=== PATIENT | female | born 1940 | race Caucasian/White ===

== ENCOUNTER → 2018-10-29 | Outpatient (CLI) | payer MEDICARE, OTHER ==
[2018-10-29 08:26] LABS: Source, Urine Clean Catch
[2018-10-29 14:14] LABS: Bilirubin, Urine Neg (Neg); Blood, Urine 2+ (Neg); Glucose Qualitative, Urine Neg (Neg); Ketones, Urine Neg (Neg); Leukocyte Esterase, Urine 2+ (Neg); Nitrite, Urine Neg (Neg); Protein, Urine Neg (Neg); Urobilinogen, Urine NORM (Normal)
[2018-10-29 14:30] LABS: Appearance, Urine Clear (Clear); Bacteria Mod /hpf; Color, Urine Yellow (P-Yellow); Squamous Epithelial Cells Few /hpf (Few)
== END | disposition home or self-care (01) ==
LOC: LAB SHORT 08:24 → LAB SRC 08:24
PROVIDERS: Urology
DX: N39.0 Urinary tract infection, site not specified (principal)
CPT/HCPCS: 81001; 87077; 87086; 87186

== ENCOUNTER 2019-06-14 08:46 | Day surgery (SDC) | payer MEDICARE, OTHER ==
[~2019-06-14] VITALS: Ht 167.6 cm; Wt 74.4 kg
[~2019-06-14 08:46] MED LIST: AMLO5 PO; LOVA40 PO; METO50ER PO; SYNTHROID75 MCG PO
[2019-06-14] MEDS ORDERED: FISH OIL 1,001000 MG (09:09)
[2019-06-14] MEDS ORDERED: OSTERA TABLET1 EACH (09:10)
[2019-06-14] MEDS ORDERED: INTRINSI B12-F1 EACH (09:10)
[2019-06-14] MEDS ORDERED: ALLERCLEAR D-11 EACH (09:11)
[2019-06-14] MEDS ORDERED: COQ-10100 MG (09:11)
[2019-06-14] MEDS ORDERED: AZO CRANBERRY1 EAC1 (09:11)
[2019-06-14] MEDS ORDERED: VIT1CAPS12 (09:11)
[2019-06-14] MEDS ORDERED: MELATONIN5 M1 (09:12)
== END 2019-06-14 11:15 | disposition home or self-care (01) ==
LOC: ORSCSDS 08:46
PROVIDERS: Internal Medicine Gastroenterology
PROC: 0DBK8ZX Excision of Ascending Colon, Via Natural or Artificial Opening Endoscopic, Diagnostic (ICD-10-PCS; principal; 2019-06-14 10:15)
PROC: 0DB88ZX Excision of Small Intestine, Via Natural or Artificial Opening Endoscopic, Diagnostic (ICD-10-PCS; principal; 2019-06-14 10:15)
PROC: 0DBM8ZX Excision of Descending Colon, Via Natural or Artificial Opening Endoscopic, Diagnostic (ICD-10-PCS; principal; 2019-06-14 10:15)
PROC: 0DB98ZX Excision of Duodenum, Via Natural or Artificial Opening Endoscopic, Diagnostic (ICD-10-PCS; principal; 2019-06-14 10:15)
PROC: 0DB68ZX Excision of Stomach, Via Natural or Artificial Opening Endoscopic, Diagnostic (ICD-10-PCS; principal; 2019-06-14 10:15)
DX: K30 Functional dyspepsia (principal); R19.7 Diarrhea, unspecified; R10.9 Unspecified abdominal pain; K52.832 Lymphocytic colitis; D12.2 Benign neoplasm of ascending colon; D12.4 Benign neoplasm of descending colon; I10 Essential (primary) hypertension; K64.8 Other hemorrhoids; K57.30 Diverticulosis of large intestine without perforation or abscess without bleeding; E78.5 Hyperlipidemia, unspecified; E78.00 Pure hypercholesterolemia, unspecified; Z79.899 Other long term (current) drug therapy
CPT/HCPCS: 88305; 88342; J0330; J0461; J2405; J2704; J7120

== ENCOUNTER 2021-11-01 08:04 | Emergency (ER) | payer MEDICARE, OTHER ==
[~2021-11-01] VITALS: Ht 167.6 cm; Wt 76.2 kg
[~2021-11-01 08:04] MED LIST changes: +ALLERCLEAR D-11 EACH; +AZO CRANBERRY1 EAC1; +COQ-10100 MG; +FISH OIL 1,001000 MG; +INTRINSI B12-F1 EACH; +MELATONIN5 M1; +OSTERA TABLET1 EACH; +VIT1CAPS12
[2021-11-01 10:25] LABS: Influenza A, PCR NEGATIVE (NEGATIVE); Influenza B, PCR NEGATIVE (NEGATIVE); Resp Syncytial Virus, PCR NEGATIVE (NEGATIVE)
[2021-11-01 11:03] LABS: SARS-Cov-2 (COVID-19) PCR, MMC POSITIVE (NEGATIVE)
== END 2021-11-01 13:13 | disposition home or self-care (01) ==
LOC: ER 08:04
PROVIDERS: Physician Assistant
DX: U07.1 COVID-19 (principal); Z88.1 Allergy status to other antibiotic agents; Z88.8 Allergy status to other drugs, medicaments and biological substances; Z79.899 Other long term (current) drug therapy
CPT/HCPCS: 0241U

== ENCOUNTER → 2021-11-30 | Outpatient (CLI) | payer MEDICARE, OTHER ==
[2021-11-30 13:47] LABS: Source, Urine Clean Catch
[2021-11-30 15:05] LABS: Appearance, Urine Hazy (Clear); Bilirubin, Urine Neg (Neg); Blood, Urine 4+ (Neg); Color, Urine Yellow (P-Yellow); Glucose Qualitative, Urine Neg (Neg); Ketones, Urine Neg (Neg); Leukocyte Esterase, Urine 2+ (Neg); Nitrite, Urine Pos (Neg); Protein, Urine 1+ (Neg); Specific Gravity, Urine 1.005 (1.003-1.022); Urobilinogen, Urine NORM (Normal)
[2021-11-30 16:15] LABS: Bacteria Many /hpf; Squamous Epithelial Cells Few /hpf (Few); White Blood Cells, Urine TNTC /hpf (0-5)
== END | disposition home or self-care (01) ==
LOC: LAB 13:46 → LAB SHORT 13:46
PROVIDERS: Internal Medicine
DX: R30.0 Dysuria (principal)
CPT/HCPCS: 36415; 81001; 87077; 87086; 87186

== ENCOUNTER → 2021-12-31 | Outpatient (CLI) | payer MEDICARE, OTHER ==
[2021-12-31 15:25] LABS: Source, Urine Clean Catch
[2021-12-31 15:52] LABS: Appearance, Urine Clear (Clear); Bilirubin, Urine Neg (Neg); Blood, Urine Neg (Neg); Color, Urine Amber (P-Yellow); Glucose Qualitative, Urine Neg (Neg); Ketones, Urine Neg (Neg); Leukocyte Esterase, Urine Neg (Neg); Nitrite, Urine Neg (Neg); Protein, Urine Neg (Neg); Specific Gravity, Urine 1.005 (1.003-1.022); Urobilinogen, Urine NORM (Normal); pH, Urine 6.5 (5.0-8.0)
== END ==
LOC: LAB SHORT 15:21 → LAB FUT 12-31 14:10
PROVIDERS: Urology
DX: R30.0 Dysuria (principal)
CPT/HCPCS: 81003; 87086

== ENCOUNTER → 2023-12-19 | Outpatient (CLI) | payer MEDICARE, OTHER ==
[2023-12-20 12:53] LABS: Adenovirus F 40/41 Not Detected (NOT DETECT); Astrovirus Not Detected (NOT DETECT); Campylobacter Sp Not Detected (NOT DETECT); Cryptosporidium Not Detected (NOT DETECT); Cyclospora Cayetanensis Not Detected (NOT DETECT); E. Coli O157 Not Detected (NOT DETECT); Entamoeba Histolytica Not Detected (NOT DETECT); Enteroaggregative E. coli-EAEC Not Detected (NOT DETECT); Enteropathogenic E. coli-EPEC Detected (NOT DETECT); Enterotoxigenic E. coli-ETEC Not Detected (NOT DETECT); Giardia Lamblia Not Detected (NOT DETECT); Norovirus GI/GII Not Detected (NOT DETECT); Plesiomonas Shigelloides Not Detected (NOT DETECT); Rotavirus A Not Detected (NOT DETECT); Salmonella Sp Not Detected (NOT DETECT); Sapovirus Not Detected (NOT DETECT); Shiga Toxin-prod E. coli-STEC Not Detected (NOT DETECT); Shigella/Enteroin E. coli-EIEC Not Detected (NOT DETECT); Vibrio Cholerae Not Detected (NOT DETECT); Vibrio Sp Not Detected (NOT DETECT); Yersinia Enterocolitica Not Detected (NOT DETECT)
== END ==
LOC: LAB SHORT 09:32
PROVIDERS: Internal Medicine
DX: K76.0 Fatty (change of) liver, not elsewhere classified (principal); M25.561 Pain in right knee; R10.11 Right upper quadrant pain; R19.7 Diarrhea, unspecified
CPT/HCPCS: 87338; 87507

== ENCOUNTER → 2023-12-26 | Outpatient (CLI) | payer MEDICARE, OTHER ==
[2023-12-28 09:31] LABS: Adenovirus F 40/41 Not Detected (NOT DETECT); Astrovirus Not Detected (NOT DETECT); Campylobacter Sp Not Detected (NOT DETECT); Cryptosporidium Not Detected (NOT DETECT); Cyclospora Cayetanensis Not Detected (NOT DETECT); E. Coli O157 Not Detected (NOT DETECT); Entamoeba Histolytica Not Detected (NOT DETECT); Enteroaggregative E. coli-EAEC Not Detected (NOT DETECT); Enteropathogenic E. coli-EPEC Not Detected (NOT DETECT); Enterotoxigenic E. coli-ETEC Not Detected (NOT DETECT); Giardia Lamblia Not Detected (NOT DETECT); Norovirus GI/GII Not Detected (NOT DETECT); Plesiomonas Shigelloides Not Detected (NOT DETECT); Rotavirus A Not Detected (NOT DETECT); Salmonella Sp Not Detected (NOT DETECT); Sapovirus Not Detected (NOT DETECT); Shiga Toxin-prod E. coli-STEC Not Detected (NOT DETECT); Shigella/Enteroin E. coli-EIEC Not Detected (NOT DETECT); Vibrio Cholerae Not Detected (NOT DETECT); Vibrio Sp Not Detected (NOT DETECT); Yersinia Enterocolitica Not Detected (NOT DETECT)
== END | disposition home or self-care (01) ==
LOC: LAB SHORT 09:15 → LAB 09:15
PROVIDERS: Internal Medicine
DX: R19.7 Diarrhea, unspecified (principal)
CPT/HCPCS: 87507

== ENCOUNTER → 2024-06-06 | Outpatient (CLI) | payer MEDICARE, OTHER ==
[~2024-06-06] MED LIST changes: +BUDESONIDE EC3 M1; +DIAZ5 PO; +HYDPAM25; +HYDR1TAB94 PO; +ZYRTEC10 M2 PO
[2024-06-06 12:02] LABS: Adenovirus F 40/41 Not Detected (NOT DETECT); Astrovirus Not Detected (NOT DETECT); Campylobacter Sp Not Detected (NOT DETECT); Cryptosporidium Not Detected (NOT DETECT); Cyclospora Cayetanensis Not Detected (NOT DETECT); E. Coli O157 Not Detected (NOT DETECT); Entamoeba Histolytica Not Detected (NOT DETECT); Enteroaggregative E. coli-EAEC Not Detected (NOT DETECT); Enteropathogenic E. coli-EPEC Not Detected (NOT DETECT); Enterotoxigenic E. coli-ETEC Not Detected (NOT DETECT); Giardia Lamblia Not Detected (NOT DETECT); Norovirus GI/GII Not Detected (NOT DETECT); Plesiomonas Shigelloides Not Detected (NOT DETECT); Rotavirus A Not Detected (NOT DETECT); Salmonella Sp Not Detected (NOT DETECT); Sapovirus Not Detected (NOT DETECT); Shiga Toxin-prod E. coli-STEC Not Detected (NOT DETECT); Shigella/Enteroin E. coli-EIEC Not Detected (NOT DETECT); Vibrio Cholerae Not Detected (NOT DETECT); Vibrio Sp Not Detected (NOT DETECT); Yersinia Enterocolitica Not Detected (NOT DETECT)
== END ==
LOC: LAB 09:29 → LAB SHORT 09:29
PROVIDERS: Internal Medicine
DX: K52.9 Noninfective gastroenteritis and colitis, unspecified (principal)
CPT/HCPCS: 87507

== ENCOUNTER 2024-12-23 11:00 | Day surgery (SDC) | payer MEDICARE, OTHER ==
[~2024-12-23] VITALS: Ht 167.6 cm; Wt 56.3 kg
[2024-12-23] MEDS ORDERED: CLIMARA1 EACH (11:26)
[2024-12-23] MEDS ORDERED: DIPATR (11:26)
[2024-12-23] MEDS ORDERED: TRAZ50 (11:26)
[2024-12-23 13:49] VITALS: BP 131/64
--- NOTE | 2024-12-23 13:49 | NUR ---
12/23/24 1344 [facility] PRESENT POST PROCEDURE, AT BEDSIDE FOR DC INSTRUCTIONS AND POST OP REPORT FROM DR MARQUEZ
== END 2024-12-23 13:40 | disposition home or self-care (01) ==
LOC: ORSCSDS 11:00
PROVIDERS: Internal Medicine Gastroenterology
PROC: 0DB68ZX Excision of Stomach, Via Natural or Artificial Opening Endoscopic, Diagnostic (ICD-10-PCS; principal; 2024-12-23 12:30)
PROC: 0DB98ZX Excision of Duodenum, Via Natural or Artificial Opening Endoscopic, Diagnostic (ICD-10-PCS; principal; 2024-12-23 12:30)
PROC: 0DBE8ZX Excision of Large Intestine, Via Natural or Artificial Opening Endoscopic, Diagnostic (ICD-10-PCS; principal; 2024-12-23 12:30)
DX: R19.7 Diarrhea, unspecified (principal); K29.50 Unspecified chronic gastritis without bleeding; K21.9 Gastro-esophageal reflux disease without esophagitis; K52.832 Lymphocytic colitis; R63.4 Abnormal weight loss; G47.33 Obstructive sleep apnea (adult) (pediatric); E03.9 Hypothyroidism, unspecified; E78.5 Hyperlipidemia, unspecified; L93.0 Discoid lupus erythematosus; Z79.899 Other long term (current) drug therapy
CPT/HCPCS: 88305; 88341; 88342; 93005; 93010; J2704; J7120

== ENCOUNTER 2025-01-21 06:30 | Day surgery (SDC) | payer MEDICARE, OTHER ==
[2024-12-31 09:47] VITALS: BP 144/87
[~2025-01-21] VITALS: Ht 166 cm; Wt 59.3 kg
[2025-01-21] VITALS (10 sets, daily range): BP systolic 103–141; BP diastolic 61–81
[~2025-01-21 06:30] MED LIST changes: -AZO CRANBERRY1 EAC1; +AZO D-MANNOSE500 M1 PO; +B-12500 MC2 PO; +C COMPLEX1000 M1 PO; +CLIMARA1 EACH; +CRANBERRY500 M1 PO; +CeFAZolin Sodium 2,000 MG in NS 100 ML IV SCH; +Chlorhexidine Mouth Care 15 ML UDC MT SCH; -DIAZ5 PO; +DIAZ5 VAG; +DIPATR; +DIPATR PO; +Estrace Vagin42.5 GM VAG; +FISH OIL 1,0001 EA10 PO; -FISH OIL 1,001000 MG; +HYDHCL25; +MELA3; +PAPAYA ENZYMES PO; +Ropivacaine 0.5% HCl/Pf 123.125 MG,EPINEPHrine HCL 0.25 MG,Ketorolac Tromethamine 15 MG... INFIL SCH; +SELENIUM200 MC3 PO; +TRAZ50 PO; +Tranexamic Acid 100 ML IV SCH; +UBID10 PO; +Vitamin D1000 UNI1 PO
[2025-01-21] MEDS ORDERED: Ondansetron HCl 2 MG / ML 2ML Vial ONE (08:07)
[2025-01-21] MEDS ORDERED: Metoclopramide HCl 5MG / ML 2ML Vial ONE (08:07)
[2025-01-21] MEDS ORDERED: Magnesium Sulfate 500 MG / ML 2ML Vial ONE (08:11)
[2025-01-21] MEDS ORDERED: Midazolam HCl 1MG / ML 2ML Vial ONE (08:14)
[2025-01-21] MEDS ORDERED: FentaNYL Citrate 50 MCG/ML 2 ML Injection IV PRN ×2 (08:35)
[2025-01-21] MEDS ORDERED: Ondansetron HCl 2 MG / ML 2ML Vial IV PRN ×2 (08:35→10:05)
[2025-01-21] MEDS ORDERED: ePHEDrine Sulfate 50 MG/ML 1ML Injection IV PRN (08:35)
[2025-01-21] MEDS ORDERED: Metoclopramide HCl 5MG / ML 2ML Vial IV PRN ×2 (08:35→10:05)
[2025-01-21] MEDS ORDERED: HYDROmorphone HCl/Pf 1MG SYR IV PRN ×2 (08:35→09:55)
[2025-01-21] MEDS ORDERED: Morphine Sulfate 4 MG/1 ML Injection IV PRN (08:35)
[2025-01-21] MEDS ORDERED: Magnesium Hydroxide Conc 10 ML UDC PO PRN (10:00)
[2025-01-21] MEDS ORDERED: HYDROmorphone HCl/Pf 1MG SYR ONE (10:04)
--- NOTE | 2025-01-21 11:24 | NUR ---
PT TO PACU W/ ANESTHESIA, VSS, PT A&OX4, DENIES PAIN/NAUSEA. WEAKLY WIGGING TOES, (+) SENSATION TOES, PEDAL PULSES PALPABLE, (+) CAP REFILL, SCDS AND COMPRESSION STOCKINGS ON. DSG CDI. XRAY COMPELTED. LUNGS CLEAR. POLARCARE APPLIED.
[2025-01-21] MEDS ORDERED: Ketorolac Tromethamine 15mg Vial IV SCH (12:00)
--- NOTE | 2025-01-21 12:04 | NUR ---
ARRIVAL NOTE: PT ARRIVED TO UNIT ON BED AT APPROX 1146. THIS RN AND TRANSPORTING RN VERIFIED SURGICAL SITE. PT DENIES QUESTIONS OR NEEDS. SEE CHARTED ASSESSMENT. CALL LIGHT IN REACH
[2025-01-21] MEDS ORDERED: ELIQUIS2.5 MG PO (14:30)
--- NOTE | 2025-01-21 16:16 | NUR ---
DISCHARGE NOTE: PT TRANSPORTED BY FRIENDS. PIV REMOVED BEFORE DISCHARGE. PT STATED UNERSTANDING OF DISCHARGE INSTRUCTIONS AND FOLLOW UP CARE. PT EATING/DRINKING AND VOIDING BEFORE DISCHARGE. SHE AMBULATED DOWN THE [place] AND WORKED WITH PT BEFORE DISCHARGE.
[2025-01-21] MEDS ORDERED: CeFAZolin Sodium 2,000 MG in NS 100 ML IV SCH (18:00)
[2025-01-22] MEDS ORDERED: Diphenoxylat/Atrop 2.5 / 0.025MG 1 Tab PO SCH (09:00)
[2025-01-22] MEDS ORDERED: Cholecalciferol 1000 Unit Tablet (=25MCG) PO SCH (09:00)
[2025-01-22] MEDS ORDERED: Misc. Tablet PO SCH (09:00)
[2025-01-23] MEDS ORDERED: Estradiol Vag Cream 0.1 MG/G 42.5 GM Tube VAG SCH (21:00)
== END 2025-01-21 16:17 | disposition home or self-care (01) ==
LOC: ORSCMMR 06:30 → ORD 08:15 → SURS 11:40 → ORSCMMR 16:17
PROVIDERS: Orthopaedic Surgery
PROC: 0SRC0J9 Replacement of Right Knee Joint with Synthetic Substitute, Cemented, Open Approach (ICD-10-PCS; principal; 2025-01-21 08:15)
DX: M17.11 Unilateral primary osteoarthritis, right knee (principal); I10 Essential (primary) hypertension; E03.9 Hypothyroidism, unspecified; Z79.899 Other long term (current) drug therapy; E78.5 Hyperlipidemia, unspecified; G47.33 Obstructive sleep apnea (adult) (pediatric); Z85.828 Personal history of other malignant neoplasm of skin
CPT/HCPCS: 73560-RT; 97110; 97116; 97162; A9270; C1713; C1776; J0166; J0690; J0735; J1171; J1885; J2250; J2405; J2704; J2765; J2795; J3475; J7120